=== PATIENT | female | born 1985 ===

== ENCOUNTER → 2022-02-09 | Outpatient (CLI) | payer OTHER ==
[2022-02-15 18:10] LABS: HPV 16 Negative (Negative); HPV 18 Negative (Negative); HPV OTHER HR TYPES Negative (Negative)
== END | disposition home or self-care (01) ==
LOC: LAB SHORT 08:30 → LAB 08:30
PROVIDERS: Physician Assistant
DX: Z01.419 Encounter for gynecological examination (general) (routine) without abnormal findings (principal)
CPT/HCPCS: 87624; 88175

== ENCOUNTER → 2023-06-23 | Outpatient (CLI) | payer BC ==
[2023-06-23 15:04] LABS: BASOPHILS ABSOLUTE AUTO 0.03 K/mm3 (0.00-0.23); BASOPHILS PERCENT AUTO 0 % (0-2); EOSINOPHILS ABSOLUTE AUTO 0.08 K/mm3 (0.00-0.68); EOSINOPHILS PERCENT AUTO 1 % (0-6); Hematocrit 36.6 % (33.0-51.0); Hemoglobin 12.6 g/dL (11.5-16.0); IMMATURE GRAN ABSOLUTE AUTO 0.07 K/mm3 (0.00-0.10); IMMATURE GRAN PERCENT AUTO 1 % (0-1); LYMPHOCYTES ABSOLUTE AUTO 1.06 K/mm3 (0.84-5.20); LYMPHOCYTES PERCENT AUTO 16 % (21-46); MONOCYTES PERCENT AUTO 6 % (4-13); Mean Corpuscular HGB 31.2 pg (26.0-34.0); Mean Corpuscular HGB Conc 34.4 g/dL (31.5-36.5); Mean Corpuscular Volume 91 fL (80-100); Mean Platelet Volume 11.1 fL (9.1-12.4); NEUTROPHILS ABSOLUTE AUTO 5.04 K/mm3 (1.96-9.15); NEUTROPHILS PERCENT AUTO 76 % (41-73); Platelet Count 138 K/mm3 (150-400); RDW Coefficient Variation 12.7 % (11.7-14.2); Red Blood Cell Count 4.04 M/mm3 (3.80-5.20); White Blood Cell Count 6.68 K/mm3 (4.00-11.30)
[2023-06-23 16:03] LABS: Thyroid Stimulating Hormone 2.42 uIU/mL (0.360-4.800)
== END | disposition home or self-care (01) ==
LOC: LAB SHORT 14:04
PROVIDERS: Advanced Practice Midwife
DX: O09.522 Supervision of elderly multigravida, second trimester (principal); O09.292 Supervision of pregnancy with other poor reproductive or obstetric history, second trimester; O99.282 Endocrine, nutritional and metabolic diseases complicating pregnancy, second trimester; E03.9 Hypothyroidism, unspecified; O99.342 Other mental disorders complicating pregnancy, second trimester; O99.322 Drug use complicating pregnancy, second trimester
CPT/HCPCS: 82950; 84443; 85025

== ENCOUNTER 2023-09-11 09:55 | Inpatient (IN) | payer BC ==
[~2023-09-11] VITALS: Ht 167.6 cm; Wt 85.9 kg
[2023-09-11] VITALS (14 sets, daily range): BP systolic 98–131; BP diastolic 55–80
[2023-09-11] MEDS ORDERED: Methylergonovine Maleate 0.2MG / ML 1ML Amp IM SCH (10:20)
[2023-09-11] MEDS ORDERED: Misoprostol 200 MCG Tab PR SCH (10:20)
[2023-09-11] MEDS ORDERED: Oxytocin 10 Unit / ML Vial IM SCH (10:20)
[2023-09-11] MEDS ORDERED: Lidocaine HCl 1% 30 ML SDV XX SCH (10:20)
[2023-09-11] MEDS ORDERED: Lactated Ringer's 1,000 ML IV PRN (10:20)
[2023-09-11] MEDS ORDERED: Bupivacaine HCl 2.5 MG/ML 10ML P/F Injection XX SCH (10:20)
[2023-09-11] MEDS ORDERED: LR Oxytocin 20 Units 1,000 ML IV SCH ×2 (10:20→18:30)
[2023-09-11] MEDS ORDERED: Bupivacaine 0.5% HCl 5 MG/ML 30MLVIAL XX SCH (10:20)
[2023-09-11] MEDS ORDERED: Castor Oil 59.146 ML BTL TOP SCH (10:20)
[2023-09-11] MEDS ORDERED: OXYTOCIN IV ONE (10:35)
[2023-09-11] MEDS ORDERED: LACTATED RINGERS IV ONE (10:35)
[2023-09-11] MEDS ORDERED: EUTHYROX50 MCG PO (11:05)
[2023-09-11 11:06] LABS: BASOPHILS ABSOLUTE AUTO 0.01 K/mm3 (0.00-0.23); BASOPHILS PERCENT AUTO 0 % (0-2); EOSINOPHILS ABSOLUTE AUTO 0.03 K/mm3 (0.00-0.68); EOSINOPHILS PERCENT AUTO 0 % (0-6); Hematocrit 35.2 % (33.0-51.0); Hemoglobin 11.8 g/dL (11.5-16.0); IMMATURE GRAN ABSOLUTE AUTO 0.04 K/mm3 (0.00-0.10); IMMATURE GRAN PERCENT AUTO 1 % (0-1); LYMPHOCYTES ABSOLUTE AUTO 0.87 K/mm3 (0.84-5.20); LYMPHOCYTES PERCENT AUTO 11 % (21-46); MONOCYTES ABSOLUTE AUTO 0.46 K/mm3 (0.16-1.47); MONOCYTES PERCENT AUTO 6 % (4-13); Mean Corpuscular HGB 30.6 pg (26.0-34.0); Mean Corpuscular HGB Conc 33.5 g/dL (31.5-36.5); Mean Corpuscular Volume 91 fL (80-100); NEUTROPHILS ABSOLUTE AUTO 6.23 K/mm3 (1.96-9.15); NEUTROPHILS PERCENT AUTO 82 % (41-73); Platelet Count 132 K/mm3 (150-400); RDW Standard Deviation 42.3 fL (35.1-46.3); Red Blood Cell Count 3.86 M/mm3 (3.80-5.20); White Blood Cell Count 7.64 K/mm3 (4.00-11.30)
[2023-09-11] MEDS ORDERED: PRENATAL TABLE1 EAC2 PO (11:06)
[2023-09-11] MEDS ORDERED: Calcium Carbonate 500 MG Tab Chew PO PRN (12:55)
[2023-09-11] MEDS ORDERED: FentaNYL Citrate 50 MCG/ML 2 ML Injection IV PRN (12:55)
[2023-09-11] MEDS ORDERED: Ondansetron HCl 2 MG / ML 2ML Vial IV PRN (12:55)
[2023-09-11] MEDS ORDERED: Acetaminophen 325 MG TABLET PO PRN ×2 (12:55→18:25)
[2023-09-11] MEDS ORDERED: Misoprostol 200 MCG Tab PR PRN (18:25)
[2023-09-11] MEDS ORDERED: Methylergonovine Maleate 0.2MG / ML 1ML Amp IM PRN (18:25)
[2023-09-11] MEDS ORDERED: Docusate Sodium 100 MG Cap PO PRN (18:30)
[2023-09-11] MEDS ORDERED: Benzocaine Topical Anesthetic Spray 60GM TOP PRN (18:30)
[2023-09-11] MEDS ORDERED: Lactated Ringer's 1,000 ML IV SCH (18:30)
[2023-09-11] MEDS ORDERED: Ibuprofen 400 MG Tab PO PRN (18:30)
[2023-09-11] MEDS ORDERED: Witch Hazel/Glycerin PADS TOP PRN (18:35)
[2023-09-11] MEDS ORDERED: Ketorolac Tromethamine 30mg Vial IV PRN (19:00)
[2023-09-11] MEDS ORDERED: Ketorolac Tromethamine 30mg Vial IV ONE (19:00)
[2023-09-12 04:18] VITALS: BP 104/69
[2023-09-12] MEDS ORDERED: Levothyroxine Sodium 0.05 MG Tab PO SCH (06:00)
[2023-09-12 06:35] LABS: Hematocrit 36.1 % (33.0-51.0); Hemoglobin 12.1 g/dL (11.5-16.0); Mean Corpuscular HGB 30.1 pg (26.0-34.0); Mean Corpuscular HGB Conc 33.5 g/dL (31.5-36.5); Mean Corpuscular Volume 90 fL (80-100); Mean Platelet Volume 10.9 fL (9.1-12.4); Platelet Count 147 K/mm3 (150-400); RDW Standard Deviation 42.6 fL (35.1-46.3); Red Blood Cell Count 4.02 M/mm3 (3.80-5.20); White Blood Cell Count 10.79 K/mm3 (4.00-11.30)
[2023-09-12 07:53] VITALS: BP 103/59
--- NOTE | 2023-09-12 08:22 | NUR ---
EXPERIENCED MOM MINDI NB AND SELF CARE WELL. C/O CRAMPING. RX GIVEN. NO QUESTIONS OR CONCERNS AT THIS TIME.
[2023-09-12] MEDS ORDERED: Prenatal Vit/FE Fumarate/FA 1 Tab PO SCH (09:00)
[2023-09-12 11:53] VITALS: BP 110/67
[2023-09-12 15:51] VITALS: BP 107/60
--- NOTE | 2023-09-12 15:53 | NUR ---
PT RESTING COMFORTABLY. PAIN RX GIVEN FOR CRAMPING WHEN BF. NO QUESTIONS OR CONCERNS ON D/C INSTRUCTIONS. PLAN D/C HOME THIS EVENING
== END 2023-09-12 18:30 | disposition home or self-care (01) | DRG 807 ==
LOC: OBS 09:55 → BC 09:58 → OBS 10:15 → BC 10:16
PROVIDERS: ADMIT Advanced Practice Midwife
PROC: 10E0XZZ Delivery of Products of Conception, External Approach (ICD-10-PCS; principal; 2023-09-11)
DX: O99.284 Endocrine, nutritional and metabolic diseases complicating childbirth (principal); Z37.0 Single live birth; O36.63X0 Maternal care for excessive fetal growth, third trimester, not applicable or unspecified; O99.334 Smoking (tobacco) complicating childbirth; F17.210 Nicotine dependence, cigarettes, uncomplicated; Z3A.39 39 weeks gestation of pregnancy; E03.9 Hypothyroidism, unspecified; O77.0 Labor and delivery complicated by meconium in amniotic fluid; O99.12 Other diseases of the blood and blood-forming organs and certain disorders involving the immune mechanism complicating childbirth; D69.6 Thrombocytopenia, unspecified; Z79.899 Other long term (current) drug therapy; Z79.890 Hormone replacement therapy
CPT/HCPCS: 36415; 84443; 85025; 85027; 86850; 86900; 86901; A9270